=== PATIENT | male | born 1990 | race Hispanic/Latino ===

== ENCOUNTER 2017-03-07 00:15 | Emergency (ER) | payer OTHER ==
[2017-03-07 00:26] VITALS: BP 145/86; TEMP 97.6
[2017-03-07] MEDS ORDERED: Oxycodone/Acetaminophen 5/325 mg Tab PO ONE (00:35)
[2017-03-07] MEDS ORDERED: Oxycodone/Acetaminophen 5/325 mg Tab ONE (00:42)
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
[2017-03-07 02:59] VITALS: PULSE 95; RESP 16
[2017-03-07 03:01] VITALS: O2SAT 98
--- NOTE | 2017-03-07 08:37 | CT ---
PROCEDURE: CT HEAD WITHOUT CONTRAST. HISTORY: head injury COMPARISON: None available. TECHNIQUE: Axial computed tomography images were obtained through the head/brain without intravenous contrast. Radiation dose: Total exam DLP = 842.05 mGy-cm. This CT exam was performed using one or more of the following dose reduction techniques: Automated exposure control, adjustment of the mA and/or kV according to patient size, and/or use of iterative reconstruction technique. FINDINGS: HEMORRHAGE: No intracranial hemorrhage. BRAIN: No mass effect or edema. No atrophy or chronic microvascular ischemic changes. VENTRICLES: Unremarkable. No hydrocephalus. CALVARIUM: Unremarkable. PARANASAL SINUSES: Unremarkable as visualized. No significant inflammatory changes. MASTOID AIR CELLS: Unremarkable as visualized. No inflammatory changes. OTHER FINDINGS: None. IMPRESSION: No evidence of acute intracranial hemorrhage intracranial collection mass effect or midline shift. Preliminary report was submitted by [facility].
--- NOTE | 2017-03-07 12:22 | RAD ---
PROCEDURE: Radiographs of the left clavicle. HISTORY: injury COMPARISON: None. FINDINGS: LEFT CLAVICLE: There is a comminuted comminuted fracture of the mid diaphysis of the left clavicle with the major fracture fragment proximally distracted inferior to the plane of the proximal left clavicle. JOINTS: Left acromioclavicular joint is widened to 8 mm indicating laxity or possible disruption here. Clinically correlate. The glenohumeral joint appears grossly unremarkable. SOFT TISSUES: Grossly unremarkable. OTHER FINDINGS: None. IMPRESSION: Comminuted fracture with proximal distraction mid diaphysis left clavicle. No apparent dislocation. The acromioclavicular joint appears widened to 8 mm and further clinical correlation is advised.
== END 2017-03-07 02:59 | disposition home or self-care (01) ==
LOC: H.ER 00:15
DX: S42.022A Displaced fracture of shaft of left clavicle, initial encounter for closed fracture (principal); V03.19XA Pedestrian with other conveyance injured in collision with car, pick-up truck or van in traffic accident, initial encounter; Y92.410 Unspecified street and highway as the place of occurrence of the external cause